=== PATIENT | female | born 2000 | race Caucasian/White ===

== ENCOUNTER 2023-02-14 17:33 | Emergency (ER) | payer OTHER ==
[~2023-02-14] VITALS: Ht 180.3 cm; Wt 78.9 kg
[2023-02-14 17:34] VITALS: TEMP 98.4; O2SAT 100
[2023-02-14 18:32] LABS: BASO % 0.1 % (0.0-1.0); EOS # 0.2 10^3/uL (0.0-0.5); HEMATOCRIT 36.6 % (36.0-47.0); HEMOGLOBIN 12.3 g/dl (12.0-15.5); LYMPH # 1.8 10^3/uL (1.5-5.0); LYMPH % 23.7 % (24.0-44.0); MEAN CORPUSCULAR HEMOGLOBIN 30.3 pg (27.0-33.0); MEAN CORPUSCULAR HGB CONC 33.6 g/dl (32.0-36.5); MEAN CORPUSCULAR VOLUME 90.1 fl (80.0-96.0); MONO # 0.7 10^3/uL (0.0-0.8); MONO % 9.7 % (2.0-8.0); NEUTROPHILS # 4.8 10^3/uL (1.5-8.5); NEUTROPHILS % 64.4 % (36.0-66.0); PLATELET COUNT, AUTOMATED 242 10^3/uL (150-450); RED BLOOD COUNT 4.06 10^6/uL (4.00-5.40); WHITE BLOOD COUNT 7.4 10^3/uL (4.0-10.0)
[2023-02-14 18:50] LABS: HCG, SERUM QUANTITATIVE 821.6 MIU/ML (<4.2)
[2023-02-14 18:51] LABS: BLOOD UREA NITROGEN 10 MG/DL (9-23); CALCIUM LEVEL 8.7 MG/DL (8.5-10.1); CARBON DIOXIDE LEVEL 24 MMOL/L (20-31); CHLORIDE LEVEL 105 MMOL/L (98-107); CREATININE FOR GFR 0.82 MG/DL (0.55-1.30); GLOMERULAR FILTRATION RATE > 60.0 (>60); GLUCOSE, FASTING 85 MG/DL (60-100); POTASSIUM SERUM 3.8 MMOL/L (3.5-5.1); SODIUM LEVEL 139 MMOL/L (136-145)
[2023-02-14 18:53] VITALS: BP 142/82
== END 2023-02-14 21:50 | disposition home or self-care (01) ==
LOC: M ED 17:33
DX: O03.4 Incomplete spontaneous abortion without complication (principal); F17.290 Nicotine dependence, other tobacco product, uncomplicated

== ENCOUNTER → 2023-02-20 | Outpatient (CLI) | payer OTHER | LOC: M PLALAB 10:59 | PROVIDERS: ATTEND Advanced Practice Midwife | DX: O02.1 Missed abortion (principal) ==

== ENCOUNTER → 2023-06-27 | Outpatient (REF) | payer OTHER ==
[2023-06-27 21:04] LABS: CHLAMYDIA DNA AMPLIFICATION NEGATIVE (NEGATIVE); GC DNA AMPLIFICATION NEGATIVE (NEGATIVE)
== END ==
LOC: M PLALAB 15:34
PROVIDERS: ATTEND Advanced Practice Midwife
DX: Z12.4 Encounter for screening for malignant neoplasm of cervix (principal)

== ENCOUNTER → 2023-06-27 | Outpatient (CLI) | payer OTHER ==
[2023-06-27 16:09] LABS: HEMOGLOBIN A1c 5.1 % (4.0-6.0)
[2023-06-27 16:32] LABS: FOLLICLE STIMULATING HORMONE 10.7 mIU/ML; THYROID STIMULATING HORMONE 1.702 uIU/ML (0.55-4.78)
[2023-06-27 16:33] LABS: PROLACTIN 13.06 NG/ML
[2023-06-27 16:34] LABS: FREE T4 1.1 NG/DL (0.89-1.76)
== END ==
LOC: M PLALAB 12:26
PROVIDERS: ATTEND Advanced Practice Midwife
DX: N92.1 Excessive and frequent menstruation with irregular cycle (principal)

== ENCOUNTER 2023-12-01 15:19 | Emergency (ER) | payer MEDICAID, OTHER, SELFPAY ==
[~2023-12-01] VITALS: Ht 180.3 cm; Wt 77.3 kg
[2023-12-01] MEDS: NS 1,000 ML IV ONE (16:30)
[2023-12-01 16:44] LABS: BASO % 0.3 % (0.0-1.0); EOS # 0.2 10^3/uL (0.0-0.5); EOS % 1.9 % (0.0-3.0); HEMATOCRIT 39.8 % (36.0-47.0); HEMOGLOBIN 13.5 g/dl (12.0-15.5); LYMPH # 2.2 10^3/uL (1.5-5.0); LYMPH % 18.3 % (24.0-44.0); MEAN CORPUSCULAR HGB CONC 33.9 g/dl (32.0-36.5); MEAN CORPUSCULAR VOLUME 91.3 fl (80.0-96.0); MONO # 0.7 10^3/uL (0.0-0.8); MONO % 6.2 % (2.0-8.0); NEUTROPHILS # 8.7 10^3/uL (1.5-8.5); NEUTROPHILS % 73.1 % (36.0-66.0); PLATELET COUNT, AUTOMATED 267 10^3/uL (150-450); RED BLOOD COUNT 4.36 10^6/uL (4.00-5.40)
[2023-12-01 17:09] LABS: CK-MB VALUE MASS < 1.0 NG/ML (<3.6)
[2023-12-01 17:10] LABS: BLOOD UREA NITROGEN 13 MG/DL (9-23); CALCIUM LEVEL 9.4 MG/DL (8.5-10.1); CARBON DIOXIDE LEVEL 30 MMOL/L (20-31); CHLORIDE LEVEL 107 MMOL/L (98-107); CPK CREATINE PHOSPHOKINASE 52 U/L (34-145); GLOMERULAR FILTRATION RATE > 60.0 (>60); GLUCOSE, FASTING 63 MG/DL (60-100); MB/CK RELATIVE INDEX 1.92 (< OR =4); SODIUM LEVEL 139 MMOL/L (136-145)
[2023-12-01] MEDS ORDERED: HOME MED LIST COMPLETE! XX SCH (17:35)
[2023-12-01 17:49] VITALS: O2SAT 99
[2023-12-01 19:51] LABS: FREE T4 0.89 NG/DL (0.89-1.76)
[2023-12-01 19:52] LABS: THYROID STIMULATING HORMONE 0.578 uIU/ML (0.55-4.78)
[2023-12-01] MEDS ORDERED: HOLTER MONITOR XX (20:14)
[2023-12-01 20:26] VITALS: BP 138/76; TEMP 98.5; O2SAT 100
== END 2023-12-01 20:37 | disposition home or self-care (01) ==
LOC: M ED 15:19
DX: R55 Syncope and collapse (principal); O99.411 Diseases of the circulatory system complicating pregnancy, first trimester; O99.330 Smoking (tobacco) complicating pregnancy, unspecified trimester; Z3A.00 Weeks of gestation of pregnancy not specified; Z91.030 Bee allergy status; Z91.048 Other nonmedicinal substance allergy status

== ENCOUNTER → 2023-12-07 | Outpatient (CLI) | payer MEDICAID ==
[~2023-12-07] MED LIST: HOLTER MONITOR XX
== END ==
LOC: M EKG 14:16
PROVIDERS: ATTEND Physician Assistant Medical
DX: R00.2 Palpitations (principal)

== ENCOUNTER 2024-01-30 13:53 | Emergency (ER) | payer OTHER, SELFPAY ==
[~2024-01-30] VITALS: Ht 180.3 cm; Wt 77.3 kg
[~2024-01-30 13:53] MED LIST changes: -ONDA-282 PO
[2024-01-30 14:34] LABS: BASO % 0.2 % (0.0-1.0); EOS # 0.2 10^3/uL (0.0-0.5); EOS % 1.5 % (0.0-3.0); HEMATOCRIT 34.3 % (36.0-47.0); HEMOGLOBIN 11.8 g/dl (12.0-15.5); LYMPH # 1.5 10^3/uL (1.5-5.0); LYMPH % 13.7 % (24.0-44.0); MEAN CORPUSCULAR HEMOGLOBIN 31.3 pg (27.0-33.0); MEAN CORPUSCULAR HGB CONC 34.4 g/dl (32.0-36.5); MONO # 0.6 10^3/uL (0.0-0.8); NEUTROPHILS # 8.8 10^3/uL (1.5-8.5); NEUTROPHILS % 79.2 % (36.0-66.0); PLATELET COUNT, AUTOMATED 223 10^3/uL (150-450); RED BLOOD COUNT 3.77 10^6/uL (4.00-5.40); WHITE BLOOD COUNT 11.1 10^3/uL (4.0-10.0)
[2024-01-30 15:15] LABS: ALBUMIN 3.5 G/DL (3.2-5.2); ALKALINE PHOSPHATASE 46 U/L (46-116); ALT/SGPT 16 U/L (7.0-40); AST/SGOT 11 U/L (<34); BILIRUBIN,TOTAL 0.5 MG/DL (0.3-1.2); BLOOD UREA NITROGEN 10 MG/DL (9-23); CALCIUM LEVEL 9.2 MG/DL (8.5-10.1); CARBON DIOXIDE LEVEL 26 MMOL/L (20-31); CHLORIDE LEVEL 105 MMOL/L (98-107); CREATININE FOR GFR 0.57 MG/DL (0.55-1.30); GLOMERULAR FILTRATION RATE > 60.0 (>60); GLUCOSE, FASTING 71 MG/DL (60-100); POTASSIUM SERUM 4.1 MMOL/L (3.5-5.1); SODIUM LEVEL 137 MMOL/L (136-145); TOTAL PROTEIN 6.2 G/DL (5.7-8.2)
[2024-01-30 15:29] LABS: HCG, SERUM QUANTITATIVE 9417.7 MIU/ML (<4.2)
[2024-01-30 16:23] VITALS: TEMP 97.5; O2SAT 100
[2024-01-30] MEDS: NS 1,000 ML IV ONE (18:10)
[2024-01-30 19:48] VITALS: BP 124/62
[2024-01-30] MEDS ORDERED: ONDA-282 PO (20:17)
== END 2024-01-30 20:26 | disposition home or self-care (01) ==
LOC: M ED 13:53
DX: R55 Syncope and collapse (principal); E28.2 Polycystic ovarian syndrome; Z87.891 Personal history of nicotine dependence; Z91.030 Bee allergy status

== ENCOUNTER → 2024-01-30 | Outpatient (CLI) | payer MEDICAID, OTHER, SELFPAY ==
[~2024-01-30] MED LIST changes: +ONDA-282 PO
[2024-01-30 15:37] LABS: HEMATOCRIT 38.8 % (36.0-47.0); MEAN CORPUSCULAR HEMOGLOBIN 30.5 pg (27.0-33.0); MEAN CORPUSCULAR HGB CONC 33.5 g/dl (32.0-36.5); MEAN CORPUSCULAR VOLUME 91.1 fl (80.0-96.0); PLATELET COUNT, AUTOMATED 259 10^3/uL (150-450); RED BLOOD COUNT 4.26 10^6/uL (4.00-5.40); WHITE BLOOD COUNT 11.2 10^3/uL (4.0-10.0)
[2024-01-30 16:24] LABS: HIV 1&2 SCREEN NEGATIVE (NEGATIVE)
[2024-01-30 16:34] LABS: HEPATITIS C VIRUS ABY INDEX < 0.02 INDEX (<0.8)
[2024-01-30 16:55] LABS: GC DNA AMPLIFICATION NEGATIVE (NEGATIVE)
== END ==
LOC: M PLALAB 13:01
PROVIDERS: ATTEND Obstetrics & Gynecology
DX: Z34.80 Encounter for supervision of other normal pregnancy, unspecified trimester (principal)

== ENCOUNTER → 2024-02-22 | Outpatient (REF) | payer OTHER ==
[~2024-02-22] MED LIST changes: +ONDA-282 PO
== END ==
LOC: M PLALAB 11:35
PROVIDERS: ATTEND Advanced Practice Midwife
DX: Z34.92 Encounter for supervision of normal pregnancy, unspecified, second trimester (principal); Z3A.19 19 weeks gestation of pregnancy